=== PATIENT | female | born 1990 | race American Indian/Alaskan Native ===

== ENCOUNTER 2017-12-24 07:30 | Emergency (ER) | payer SELFPAY ==
[2017-12-24 08:26] LABS: Basophils % (Auto) 0.5 % (0.0-1.8); Eosinophils % (Auto) 0.7 % (0.0-4.3); Hematocrit 40.3 % (30.3-42.9); Hemoglobin 14.1 gm/dl (10.1-14.3); Lymphocytes # (Auto) 0.7 K/mm3 (1.2-5.4); Lymphocytes % (Auto) 10.4 % (13.4-35.0); Mean Corpuscular HGB Conc 35 % (30-34); Mean Corpuscular Hemoglobin 33 pg (28-32); Mean Corpuscular Volume 94 fl (79-97); Monocytes # (Auto) 0.4 K/mm3 (0.0-0.8); Monocytes % (Auto) 6.2 % (0.0-7.3); Platelet Count 309 K/mm3 (140-440); Red Blood Count 4.31 M/mm3 (3.65-5.03); Red Cell Distribution Width 13.5 % (13.2-15.2)
[2017-12-24 08:46] LABS: Alanine Aminotransferase 37 units/L (7-56); Albumin 4.5 g/dL (3.9-5); BUN/Creatinine Ratio 9; Blood Urea Nitrogen 6 mg/dL (7-17); Calcium 9.4 mg/dL (8.4-10.2); Hemolysis Index 16
[2017-12-24] MEDS ORDERED: KEPPRA 1,000 MG/NS 0.75% 100ML 1,000 MG/100 ML BAG IV ONE (08:59)
[2017-12-24] MEDS ORDERED: TORADOL IV ONE (09:27)
--- NOTE | 2017-12-24 10:22 | Emergency Department Report ---
ED Seizure HPI - General Chief Complaint: Seizure Stated Complaint: SEIZURE Time Seen by Provider: 12/24/17 09:19 Source: EMS Mode of arrival: Stretcher Limitations: Other - History of Present Illness Initial Comments: 27-year-old female with a past medical history seizures presents to the hospital with complaints of 3 seizures prior to arrival as per family. Patient last took her Keppra 2 days ago and states she misplaced her medication. She complains of a global 10/10 headache and generalized body aches. She has a mild tongue abrasion to the left and denies urinary incontinence. She is currently on her menstrual cycle. - Related Data Home Medications Medication Instructions Recorded Confirmed Last Taken Amitriptyline [Elavil] 50 mg PO QHS 08/27/15 08/27/15 Unknown Previous Rx's Medication Instructions Recorded Last Taken Type levETIRAcetam [Keppra TAB] 1,000 mg PO BID #60 tablet 12/24/17 Unknown Rx Allergies Allergy/AdvReac Type Severity Reaction Status Date / Time latex Allergy Hives Verified 08/27/15 16:39 morphine Allergy Hives Verified 08/27/15 16:39 Penicillins Allergy Hives Verified 08/27/15 16:39 tramadol Allergy Itching Verified 08/27/15 16:39 ED Review of Systems ROS: Stated complaint: SEIZURE Other details as noted in HPI Comment: All other systems reviewed and negative ED Past Medical Hx - Past Medical History Hx Seizures: Yes - Surgical History Additional Surgical History: tonsillectomy - Social History Smoking Status: Current Some Day Smoker Substance Use Type: Alcohol - Medications Home Medications: Home Medications Medication Instructions Recorded Confirmed Last Taken Type Amitriptyline [Elavil] 50 mg PO QHS 08/27/15 08/27/15 Unknown History levETIRAcetam [Keppra TAB] 1,000 mg PO BID #60 tablet 12/24/17 Unknown Rx ED Physical Exam - General Limitations: Other - Other Other exam information: General: No limitations Head exam: Atraumatic, normocephalic Eyes exam: Normal appearance, pupils equal reactive to light ENT: Moist mucous membrane, left-sided tongue abrasion without laceration Neck exam: Normal inspection, full range of motion, no meningismus nontender Respiratory exam: Clear to auscultation bilateral, no wheezes, rales, crackles Cardiovascular: Normal rate and rhythm, normal heart sounds Abdomen: Soft, nondistended, and nontender, with normal bowel sounds, no rebound, or guarding Extremity: Full range of motion normal inspection no deformity Back: Normal Inspection, full range of motion, no tenderness Neurologic: Alert, oriented x3, cranial nerves intact, no motor or sensory deficit Psychiatric: normal affect, normal mood Skin: Warm, dry, intact ED Course Vital Signs 12/24/17 07:38 Temperature 98.5 F Pulse Rate 64 Respiratory 18 Rate Blood Pressure 120/84 Blood Pressure 120/84 [Right] O2 Sat by Pulse 95 Oximetry - Reevaluation(s) Reevaluation #1: 12/24/17 11:00 pt received toradol and continues to have pain. Because she states this headache is worse then her previous sz related headaches a ct head was ordered. Tylenol was ordered as well. Reevaluation #2: 12/24/17 12:19 pt feeling better. ambulating without difficulty ED Medical Decision Making - Lab Data Result diagrams: 12/24/17 08:05 12/24/17 08:05 Lab Results 12/24/17 12/24/17 Range/Units 08:05 08:05 WBC 6.5 (4.5-11.0) K/mm3 RBC 4.31 (3.65-5.03) M/mm3 Hgb 14.1 (10.1-14.3) gm/dl Hct 40.3 (30.3-42.9) % MCV 94 (79-97) fl MCH 33 H (28-32) pg MCHC 35 H (30-34) % RDW 13.5 (13.2-15.2) % Plt Count 309 (140-440) K/mm3 Lymph % (Auto) 10.4 L (13.4-35.0) % [facility] [facility] % (Auto) 6.2 (0.0-7.3) % Eos % (Auto) 0.7 (0.0-4.3) % Baso % (Auto) 0.5 (0.0-1.8) % Lymph # 0.7 L (1.2-5.4) K/mm3 [facility] # 0.4 (0.0-0.8) K/mm3 Eos # 0.0 (0.0-0.4) K/mm3 Baso # 0.0 (0.0-0.1) K/mm3 Seg Neutrophils % 82.2 H (40.0-70.0) % Seg Neutrophils # 5.4 (1.8-7.7) K/mm3 Sodium 140 (137-145) mmol/L Potassium 4.3 (3.6-5.0) mmol/L Chloride 106.3 (98-107) mmol/L Carbon Dioxide 21 L (22-30) mmol/L Anion Gap 17 mmol/L BUN 6 L (7-17) mg/dL Creatinine 0.7 (0.7-1.2) mg/dL Estimated GFR > 60 ml/min BUN/Creatinine Ratio 9 % Glucose 82 (65-100) mg/dL Calcium 9.4 (8.4-10.2) mg/dL Total Bilirubin 0.40 (0.1-1.2) mg/dL AST 27 (5-40) units/L ALT 37 (7-56) units/L Alkaline Phosphatase 48 (35-129) units/L Total Protein 6.6 (6.3-8.2) g/dL Albumin 4.5 (3.9-5) g/dL Albumin/Globulin Ratio 2.1 % - Radiology Data Radiology results: report reviewed FINAL REPORT EXAM: CT HEAD/BRAIN WO CON HISTORY: headache, seizure COMPARISON: None. TECHNIQUE: Multiple contiguous axial images were obtained from the skullbase to the vertex without administration of IV contrast. FINDINGS: Brain volume is normal for age. No hemorrhage, mass, mass effect, or midline shift. Ventricles are not enlarged. Normal basal cisterns. No pathologic extra-axial fluid collection. No evidence of acute infarct. No skull fracture. Paranasal sinuses and mastoid air cells are clear. Bilateral orbits are grossly intact. IMPRESSION: No acute intracranial abnormality. - Medical Decision Making sz secondary to med noncompliance post sz headache with normal ct head received IV keppra IV toradol po tylenol ordered no sz activity in ed will d/c with refill in meds. - Differential Diagnosis seizure, medication noncompliance, electrolyte abnormality Critical Care Time: No Critical care attestation.: If time is entered above; I have spent that time in minutes in the direct care of this critically ill patient, excluding procedure time. ED Disposition Clinical Impression: Seizure, Noncompliance with medication regimen, Headache Disposition: TO HOME OR SELFCARE Is pt being admited?: No Does the pt Need Aspirin: No Condition: Stable Instructions: Recurrent Seizures Adult (ED) Additional Instructions: Take your medicine as prescribed. Take Tylenol or Motrin as needed for pain. Follow up with a neurologist and primary care doctor. Prescriptions: levETIRAcetam [Keppra TAB] 1,000 mg PO BID #60 tablet Referrals: OSEI SALINAS MD [Staff Physician] - 3-5 Days (neurologist ) YASMANY COLE MD [Staff Physician] - 3-5 Days (primary care doctor ) [facility] [Provider Group] - 3-5 Days (primary care clinic ) Time of Disposition: 12:18
[2017-12-24] MEDS ORDERED: TYLENOL PO ONE (11:00)
--- NOTE | 2017-12-24 12:04 | Cat Scan Report ---
FINAL REPORT EXAM: CT HEAD/BRAIN WO CON HISTORY: headache, seizure COMPARISON: None. TECHNIQUE: Multiple contiguous axial images were obtained from the skullbase to the vertex without administration of IV contrast. FINDINGS: Brain volume is normal for age. No hemorrhage, mass, mass effect, or midline shift. Ventricles are not enlarged. Normal basal cisterns. No pathologic extra-axial fluid collection. No evidence of acute infarct. No skull fracture. Paranasal sinuses and mastoid air cells are clear. Bilateral orbits are grossly intact. IMPRESSION: No acute intracranial abnormality.
[2017-12-24 12:17] VITALS: BP 111/51
== END 2017-12-24 12:25 | disposition home or self-care (01) ==
LOC: ED 07:30
DX: R56.9 Unspecified convulsions (principal); R51 Headache; Z91.14 Patient's other noncompliance with medication regimen; Z88.5 Allergy status to narcotic agent; Z88.0 Allergy status to penicillin; Z72.0 Tobacco use; Z90.89 Acquired absence of other organs; Z88.8 Allergy status to other drugs, medicaments and biological substances; Z91.040 Latex allergy status
CPT/HCPCS: 36415; 70450; 80053; 85025; 96374; 96375; 99284; J1885; J1953

== ENCOUNTER 2021-06-11 11:58 | Outpatient (CLI) | payer MEDICAID | END 2021-06-11 18:02 | disposition home or self-care (01) | LOC: LAB 11:58 → APU 17:42 → LAB 18:02 | DX: O26.893 Other specified pregnancy related conditions, third trimester (principal); O99.333 Smoking (tobacco) complicating pregnancy, third trimester; Z67.11 Type A blood, Rh negative; Z3A.28 28 weeks gestation of pregnancy | CPT/HCPCS: 86850; 86900; 86901; 96372; J2790 ==